=== PATIENT | female | born 1980 | race Caucasian/White ===

== ENCOUNTER 2018-09-05 09:38 | Emergency (ER) | payer BC, OTHER ==
[2018-09-05 10:10] VITALS: BP 150/89
--- NOTE | 2018-09-05 10:32 | ED ---
Throat Pain/Nasal Congestion - HPI Summary HPI Summary: patient with hx. of drainage and decreased hearing noted in the left ear. hx. of chronic perforation. no fever. hx. of chronic perforation but has never seen ENT. Patient is a nonsmoker - History of Current Complaint Chief Complaint: UCEar Time Seen by Provider: 09/05/18 10:20 Onset/Duration: Lasting Days Associated Signs And Symptoms: Positive: Sinus Discomfort Cough: Nonproductive - Allergies/Home Medications Allergies/Adverse Reactions: Allergies Allergy/AdvReac Type Severity Reaction Status Date / Time moxifloxacin [From Avelox] Allergy rash Verified 09/05/18 10:11 throat tightness Home Medications: Home Medications Loratadine 10 mg PO DAILY 09/05/18 [History Confirmed 09/05/18] PMH/Surg Hx/FS Hx/Imm Hx Previously Healthy: Yes - Surgical History Surgery Procedure, Year, and Place: tubes in ears as a child Infectious Disease History: No Infectious Disease History: Denies: Traveled Outside the [place] in Last 30 Days - Social History Alcohol Use: Occasionally Substance Use Type: Reports: None Smoking Status (MU): Never Smoked Tobacco Review of Systems Constitutional: Negative Eyes: Negative Positive: Ear Ache, Other - left sided drainage Cardiovascular: Negative Respiratory: Negative Gastrointestinal: Negative Genitourinary: Negative Musculoskeletal: Negative Skin: Negative Neurological: Negative Physical Exam Triage Information Reviewed: Yes Vital Signs On Initial Exam: Initial Vitals Temp Pulse Resp BP Pulse Ox 37.1 C 123 18 150/89 99 09/05/18 10:07 09/05/18 10:07 09/05/18 10:07 09/05/18 10:07 09/05/18 10:07 Vital Signs Reviewed: Yes Appearance: Positive: Well-Appearing Skin: Positive: Warm, Dry Eyes: Positive: Other: ENT: Positive: Other - signs of otititis media. unable to see a perforation , purulent material behind ear drum Neck: Positive: Supple Respiratory/Lung Sounds: Positive: Clear to Auscultation Cardiovascular: Positive: Normal Abdomen Description: Positive: Nontender Diagnostics - Vital Signs Vital Signs Temp Pulse Resp BP Pulse Ox 09/05/18 10:07 37.1 C 123 18 150/89 99 - Laboratory Lab Statement: Any lab studies that have been ordered have been reviewed, and results considered in the medical decision making process. EENT Course/Dx - Diagnoses Provider Diagnoses: Perforated ear drum, Otitis media Is Visit Related: No Discharge - Sign-Out/Discharge Documenting (check all that apply): Patient Departure All imaging exams completed and their final reports reviewed: Yes - Discharge Plan Condition: Good Disposition: HOME Referrals: Domo Gage MD [Primary Care Provider] - - Billing Disposition and Condition Condition: GOOD Disposition: Home
== END 2018-09-05 10:41 | disposition home or self-care (01) ==
LOC: UCEAST 09:38
DX: H66.92 Otitis media, unspecified, left ear (principal); H72.92 Unspecified perforation of tympanic membrane, left ear; Z88.1 Allergy status to other antibiotic agents
CPT/HCPCS: 87070; 87205; 99212; G0463

== ENCOUNTER 2019-04-02 11:03 | Emergency (ER) | payer BC ==
--- NOTE | 2019-04-02 12:32 | UC ---
Complaint Female HPI - HPI Summary HPI Summary: ONSET YESTERDAY OF RIGHT FLANK PAIN, CRAMPY LOWER ABDOMINAL PAIN AND DARK COLORED URINE. DENIES ANY DYSURIA OR URINARY FREQUENCY. NO FEVER OR NAUSEA. NO HISTORY OF KIDNEY STONES IN THE PAST. NO RECENT TRAUMA OR UNUSUAL ACTIVITY. - History Of Current Complaint Chief Complaint: UCGU Stated Complaint: URINE ISSUES Time Seen by Provider: 04/02/19 11:39 Hx Obtained From: Patient Hx Last Menstrual Period: ended 03/29 Onset/Duration: Gradual Onset, Lasting Days, Still Present Timing: Constant Severity Initially: Moderate Severity Currently: Moderate Pain Intensity: 2 Pain Scale Used: 0-10 Numeric Character: Sharp, Cramping Aggravating Factor(s): Nothing Alleviating Factor(s): Nothing Associated Signs And Symptoms: Positive: Back Pain. Negative: Fever, Nausea - Allergies/Home Medications Allergies/Adverse Reactions: Allergies Allergy/AdvReac Type Severity Reaction Status Date / Time moxifloxacin [From Avelox] Allergy rash Verified 04/02/19 11:24 throat tightness Home Medications: Home Medications Loratadine [Claritin 10 MG CAP] 10 mg PO DAILY 04/02/19 [History Confirmed 04/02] PMH/Surg Hx/FS Hx/Imm Hx - Additional Past Medical History Additional PMH: IBS, ALLERGIES - Surgical History Surgical History: Yes Surgery Procedure, Year, and Place: tubes in ears as a child - Family History Known Family History: Positive: Unknown - PT ADOPTED - Social History Alcohol Use: Occasionally Substance Use Type: None Smoking Status (MU): Never Smoked Tobacco Review of Systems All Other Systems Reviewed And Are Negative: Yes Constitutional: Positive: Negative Cardiovascular: Positive: Negative Gastrointestinal: Positive: Abdominal Pain - CRAMPY Genitourinary: Positive: Hematuria, Other - RIGHT FLANK PAIN. Negative: Dysuria , Frequency Physical Exam Triage Information Reviewed: Yes Appearance: Well-Appearing, No Pain Distress, Well-Nourished Vital Signs: Initial Vital Signs Temp 99.0 F 04/02/19 11:25 Pulse 100 04/02/19 11:25 Resp 16 04/02/19 11:25 BP 143/91 04/02/19 11:25 Pulse Ox 100 04/02/19 11:25 Laboratory Tests 04/02/19 11:47 POC Urine Color Sosa POC Urine Clarity Cloudy POC Urine pH 6.0 POC Ur Specif [place] 1.010 POC Urine Protein 1+ A POC Ur Glucose (UA) Negative POC Urine Ketones Negative POC Urine Blood 3+ A POC Urine Nitrite Negative POC Urine Bilirubin Negative POC Urine Urobilinogen 0.2 POC U Leukocyte Esteras Negative Eyes: Positive: Conjunctiva Clear ENT: Positive: Hearing grossly normal Neck: Positive: Supple Respiratory: Positive: No respiratory distress, No accessory muscle use Cardiovascular: Positive: Pulses Normal Abdomen Description: Positive: Nontender, Soft, CVA Tenderness (R) - EQUIVOCAL. Negative: CVA Tenderness (L), Distended, Guarding Musculoskeletal: Positive: No Edema Neurological: Positive: Alert Psychological: Positive: Age Appropriate Behavior Skin: Negative: Rashes Diagnostics - Radiology CT ABD/PELVIS W/O CONTRAST Radiology Interpretation Completed By: Radiologist Summary of Radiographic Findings: No obstructive uropathy is noted. Normal appendix. No abnormal masses or fluid. collections are noted. Complaint Female Dx - Course Course Of Treatment: NOTHING ON CT SCAN TODAY TO EXPLAIN THE BLOOD IN PATIENTS URINE. SHE STATES HER ABDOMINAL PAIN TODAY IS IMPROVED ALTHOUGH SHE DOES HAVE PERSISTENT RIGHT FLANK PAIN. ADVISED SHE CALL UROLOGY FOR FOLLOW-UP APPOINTMENT. TO THE ER WITHOUT FAIL IF SYMPTOMS WORSEN. - Differential Dx/Diagnosis Provider Diagnosis: Hematuria, Right flank pain Discharge - Sign-Out/Discharge Documenting (check all that apply): Patient Departure All imaging exams completed and their final reports reviewed: Yes - Discharge Plan Condition: Stable Disposition: HOME Patient Education Materials: Hematuria (ED) Referrals: [facility] [Provider Group] - 1 Week Domo Gage MD [Primary Care Provider] - If Needed Additional Instructions: YOUR CT SCAN WAS UNREMARKABLE TODAY. UNCLEAR ETIOLOGY OF THE BLOOD IN YOUR URINE. BE SURE TO STAY WELL-HYDRATED. CALL UROLOGY TODAY TO SCHEDULE AN APPOINTMENT FOR FOLLOW-UP. GO TO THE ER WITHOUT FAIL IF YOU HAVE PERSISTENT ALESSIA BLOOD IN THE URINE, WORSENING PAIN, FEVER, NAUSEA OR ANY OTHER CONCERNING SYMPTOMS. - Billing Disposition and Condition Condition: STABLE Disposition: Home
[2019-04-02 13:37] VITALS: BP 125/85
== END 2019-04-02 13:37 | disposition home or self-care (01) ==
LOC: UCEAST 11:03
DX: R10.30 Lower abdominal pain, unspecified (principal); R31.9 Hematuria, unspecified; M54.9 Dorsalgia, unspecified; K58.9 Irritable bowel syndrome, unspecified; Z88.1 Allergy status to other antibiotic agents
CPT/HCPCS: 74176; 81003; 99212; G0463